=== PATIENT | female | born 1975 | race American Indian/Alaskan Native ===

== ENCOUNTER 2021-07-05 07:48 | Day surgery (SDC) | payer OTHER ==
[~2021-07-05 07:48] MED LIST: ACETAMINOPHEN 500 MG TAB PO SCH; LACTATED RINGERS 1,000 ML IV SCH; MIDAZOLAM 2 MG/2 ML INJ IV SCH; SCOPOLAMINE TRANSDERMAL PATCH 72 HR TD SCH
[2021-07-05] MEDS ORDERED: ceFAZolin/STERILE WATER 2 GM/20 ML SYRINGE IV NR (09:00)
[2021-07-05] MEDS ORDERED: ceFAZolin/Water 2 GM/20 ML 2 GM/20 ML SYRINGE IV ONE (09:08)
[2021-07-05] MEDS ORDERED: LIDOCAINE MPF (2%) 20 MG/1 ML VIAL 5 ML ONE (09:30)
[2021-07-05] MEDS ORDERED: propofoL 200 MG/20 ML VIAL IV ONE (09:31)
[2021-07-05] MEDS ORDERED: fentaNYL 100 MCG/2 ML INJ ONE (09:31)
--- NOTE | 2021-07-05 09:32 | Anesthesia Consultation ---
Anesthesia Consult and Med Hx Date of service: 07/05/21 - Airway Anesthetic Teeth Evaluation: Good (loose #9 ) ROM Head & Neck: Adequate Mental/Hyoid Distance: Adequate Mallampati Class: Class I Intubation Access Assessment: Good - Pre-Operative Health Status ASA Pre-Surgery Classification: ASA2 Proposed Anesthetic Plan: General - Pulmonary Hx Smoking: Yes (1/2 PPD X 28 YRS) Hx Respiratory Symptoms: No - Cardiovascular System Hx Hypertension: Yes Hx Heart Attack/AMI: No Hx Percutaneous Transluminal Coronary Angioplasty (PTCA): No Hx Cardia Arrhythmia: No - Central Nervous System CVA: No - Endocrine Hx Renal Disease: No Hx Liver Disease: No Hx Insulin Dependent Diabetes: No Hx Non-Insulin Dependent Diabetes: No Hx Thyroid Disease: No - Other Systems Hx Substance Use: Yes (THC) - Additional Comments Anesthesia Medical History Comments: No hx anesthetic complications.
--- NOTE | 2021-07-05 09:32 | Anesthesia Day of Surgery ---
Anesthesia Day of Surgery - Day of Surgery Patient Examined: Yes Patient H&P Reviewed: Yes Patient is NPO: Yes
[2021-07-05] MEDS ORDERED: dexAMETHasone 20 MG/5 ML VIAL ONE (09:41)
[2021-07-05] MEDS ORDERED: KETOROLAC 30 MG/1 ML INJ ONE (09:41)
[2021-07-05] MEDS ORDERED: ONDANSETRON 4 MG/2 ML INJ ONE (09:41)
[2021-07-05] MEDS ORDERED: WATER FOR IRRIG STERILE 2000 ML IR ONE (09:43)
[2021-07-05] MEDS ORDERED: HYDROcodone/ACETAMINOPHEN 5-325 MG TAB PO PRN (10:00)
[2021-07-05] MEDS ORDERED: HYDROmorphone 1 MG/1 ML INJ IV PRN (10:00)
[2021-07-05 10:17] VITALS: BP 134/77
--- NOTE | 2021-07-05 11:55 | Operative Report ---
DATE OF SURGERY: 07/05/2021 TIME OF PROCEDURE: At approximately 9:00 a.m. PREOPERATIVE DIAGNOSIS: Bladder tumor. POSTOPERATIVE DIAGNOSIS: Normal cystoscopic exam. ANESTHESIA: General. ATTENDING: King Negrete MD ESTIMATED BLOOD LOSS: 10 mL. SPECIMENS: None. DRAINS: None. COMPLICATIONS: None. INDICATIONS FOR PROCEDURE: The patient is a 45-year-old female who had some vague abdominal pain and underwent a CT scan. The CT scan demonstrated a possible bladder mass. The patient had no hematuria. She was brought to the operating room for cystoscopy and possible biopsy and tumor resection if needed. DESCRIPTION OF PROCEDURE: After induction of suitable anesthesia and proper positioning and preparation in the dorsal lithotomy position, a cystoscope was used to enter the bladder under direct visualization. The bladder was carefully inspected with both the 30 and 70-degree cystoscope. There was no evidence of a bladder tumor or any mucosal abnormality. There was indentation on the posterior bladder that looked like either the uterus or perhaps some bowel that was flattened with manipulation. There was no evidence of any mucosal abnormality or any bladder tumor. The patient was then awakened from anesthesia and transported to the recovery room in stable condition. She tolerated the procedure well. The patient can return as needed. TID: [id number] RECEIPT: [id number] RENATA/RADHAMES
--- NOTE | 2021-07-05 14:28 | Post Anesthesia Evaluation ---
- Post Anesthesia Evaluation Patient Participated: Yes Airway Patent: Yes Stable Respiratory Function: Yes Nausea/Vomiting: No Temp > 96.8F: Yes Pain Manageable: Yes Adequeate Hydration: Yes Anesthesia Complications: No
== END 2021-07-05 10:50 | disposition home or self-care (01) ==
LOC: OR 07:48
PROVIDERS: ATTEND Urology
DX: D49.4 Neoplasm of unspecified behavior of bladder (principal); I10 Essential (primary) hypertension; F17.210 Nicotine dependence, cigarettes, uncomplicated; Z79.899 Other long term (current) drug therapy; Z98.890 Other specified postprocedural states
CPT/HCPCS: 52000; 81025; 88112; J0690; J1100; J1885; J2250; J2405; J2704; J3010; J7120